=== PATIENT | female | born 1985 | race Caucasian/White ===

== ENCOUNTER 2018-07-07 19:19 | Inpatient (IN) | payer MEDICAID, OTHER ==
[2018-07-07] MEDS ORDERED: RINGER'S SOLUTION,LACTATED 1,000 ML IV PRN (19:31)
[2018-07-07 19:52] LABS: Urine Bilirubin Negative (NEGATIVE); Urine Blood Negative /ul (NEGATIVE); Urine Ketone Negative (NEGATIVE); Urine Nitrite Negative (NEGATIVE); Urine Protein Negative (NEGATIVE); Urine Specific Gravity 1.015 SP.GR. (1.005-1.010); Urine Urobilinogen Normal (NORMAL); Urine pH 6.5 pH (5.0-7.0)
[2018-07-07 19:59] LABS: Urine Appearance Clear (CLEAR); Urine Color Yellow
[2018-07-07 20:00] LABS: Urine Bacteria TRACE; Urine RBC None Seen /hpf (0-5); Urine WBC None Seen /hpf (0-5)
[2018-07-07 20:05] LABS: Cocaine Ur Negative (NEGATIVE); Urine Barbiturate Negative (NEGATIVE); Urine Benzodiazepines Negative (NEGATIVE); Urine Opiates Negative (NEGATIVE); Urine PCP Negative (NEGATIVE); Urine THC Negative (NEGATIVE)
[2018-07-07] MEDS ORDERED: RINGER'S SOLUTION,LACTATED 1,000 ML IV ONE ×2 (20:54→23:48)
--- NOTE | 2018-07-07 22:05 | HP ---
Chief Complaint - Chief Complaint Date of Service: 07/07/18 Time of Service: 21:59 Chief Complaint: Labor History of Present Illness: The patient presented to L&D complaining of regular ctx. She denied vb or lof. Fetus was active. No other complaints. Medical History (Last Reviewed 06/15/18 @ 11:26 by Hamilton Dangelo RN) Abnormal Pap smear of cervix Onset Date: ~01/07/18 Anxiety Onset Date: Unknown Depression (emotion) Onset Date: Unknown Drug abuse Onset Date: Unknown Tobacco abuse Onset Date: Unknown HPV (human papilloma virus) infection Onset Date: ~01/07/18 Surgical History: Surgical History (Last Reviewed 06/15/18 @ 11:26 by Hamilton Dangelo RN) H/O adenoidectomy Onset Date: ~1992 H/O thumb surgery Onset Date: ~2011 History of colposcopy Onset Date: ~02/03/18 History of tonsillectomy Onset Date: ~1992 Previous section Onset Date: ~2008 ankle surgery Onset Date: ~2004 Family History: Family History (Last Reviewed 06/15/18 @ 11:26 by Hamilton Dangelo RN) Father Alive and well Mother Alive and well Grandfather Heart disease Diabetes Cancer Social History: Preferred Language Tongan Abuse History No History of abuse Psych History No pertinent hx Review Of Systems (GEN) - Review of Systems EENTM: Present: No Symptoms Reported Respiratory: Present: No Symptoms Reported Cardiac: Present: No Symptoms Reported Abdominal: Present: No Symptoms Reported Genitourinary: Present: No Symptoms Reported Musculoskeletal: Present: No Symptoms Reported Neurological: Present: No Symptoms Reported Skin: Present: No Symptoms Reported Endocrine: Present: No Symptoms Reported Immunizations: IMMUNIZATION HX History of Influenza Vaccine Yes Hx Pneumococcal Vaccination No Allergies/Adverse Reactions: Allergies Allergy/AdvReac Type Severity Reaction Status Date / Time No Known Allergies Allergy Verified 07/07/18 19:36 Home Medications: HOME MEDICATIONS Vit 90/Iron Fum/Folic [ Formula Tablet] 1 ea PO DAILY 10/04/15 [Last Taken 01/08/16 2100] acetaminophen 500 mg tablet 1,000 mg PO Q6H PRN tab 05/13/18 [Last Taken Unknown] blood sugar diagnostic strips See Dose Instructions .ROUTE .MEDSUPPLY #100 ea [Last Taken Unknown] blood-glucose meter kit See Dose Instructions .ROUTE .MEDSUPPLY #1 ea 05/18/18 [ Last Taken Unknown] lancets 28 gauge See Dose Instructions .ROUTE .MEDSUPPLY #100 ea 05/18/18 [Last Taken Unknown] insulin NPH isophane U-100 human 100 unit/mL (3 mL) subcutaneous pen 16 unit SUB -Q HS ml 06/28/18 [Last Taken Unknown] Exam - Exam Constitutional: Present: Alert, Oriented x3, Cooperative, No distress Back Exam: Present: normal inspection, no CVA tenderness Breasts: Present: Exam deferred Respiratory: Present: chest non-tender, lungs clear, normal breath sounds, no respiratory distress Cardiovascular/Chest: Present: normal peripheral pulses, regular rate, rhythm, no murmur Abdomen: Present: Normal bowel sounds, soft, nontender, nondistended /Rectal: Present: Exam deferred Extremity: Present: non-tender, no calf tenderness, pedal edema Skin Exam: Present: normal color, warm/dry, no cyanosis Appearance: Present: appropriate appearance Eye contact: Present: cooperative Thoughts: Present: normal thought pattern Diagnostic Studies: Laboratory Results Urine Color Yellow 07/07/18 19:45 Urine Appearance Clear (CLEAR) 07/07/18 19:45 Urine pH 6.5 pH (5.0-7.0) 07/07/18 19:45 Ur Specific [place] 1.015 SP.GR. (1.005-1.010) 07/07/18 19:45 Urine Protein Negative mg/dL (NEGATIVE) 07/07/18 19:45 Urine Glucose (UA) Negative mg/dL (NEGATIVE) 07/07/18 19:45 Urine Ketones Negative mg/dL (NEGATIVE) 07/07/18 19:45 Urine Blood Negative /ul (NEGATIVE) 07/07/18 19:45 Urine Nitrate Negative (NEGATIVE) 07/07/18 19:45 Urine Bilirubin Negative mg/dl (NEGATIVE) 07/07/18 19:45 Urine Urobilinogen Normal EU/dl (NORMAL) 07/07/18 19:45 Ur Leukocyte Esterase Negative /ul (NEGATIVE) 07/07/18 19:45 Urine RBC None seen /hpf (0-5) 07/07/18 19:45 Urine WBC None seen /hpf (0-5) 07/07/18 19:45 Ur Epithelial Cells Trace /hpf (0-5) 07/07/18 19:45 Urine Bacteria Trace (NONE) 07/07/18 19:45 Urine Opiates Screen Negative (NEGATIVE) 07/07/18 19:48 Barbiturate Screen Negative (NEGATIVE) 07/07/18 19:48 Ur Phencyclidine Scrn Negative (NEGATIVE) 07/07/18 19:48 Urine Amphetamine Negative (NEGATIVE) 07/07/18 19:48 U Benzodiazepines Scrn Negative (NEGATIVE) 07/07/18 19:48 Urine Cocaine Screen Negative (NEGATIVE) 07/07/18 19:48 Urine Marijuana (THC) Negative (NEGATIVE) 07/07/18 19:48 Assessment/Plan - Narrative Narrative: Labor at term. Proceed with repeat delivery and bilateral salpingectomy. The patient is 100% sure she does not desire any future childbearing. A2GDM: FSBS was 69 on admission
[2018-07-07] MEDS ORDERED: OXYTOCIN 20 UNITS in RINGER'S SOLUTION,LACTATED 1,000 ML IV ONE ×2 (22:11→22:16)
[2018-07-07] MEDS ORDERED: SENNOSIDES 8.6 MG TABLET PO PRN (23:48)
[2018-07-07] MEDS ORDERED: ONDANSETRON HCL/PF 2 MG/ML VIAL IV PRN (23:48)
[2018-07-07] MEDS ORDERED: SIMETHICONE 80 MG TAB.CHEW PO PRN (23:48)
[2018-07-07] MEDS ORDERED: diphenhydrAMINE HCL 25 MG CAPSULE PO PRN (23:48)
[2018-07-07] MEDS ORDERED: BISACODYL 10 MG SUPP.RECT RC PRN (23:48)
--- NOTE | 2018-07-07 23:54 | POSTOP NO ---
Date of Surgery: 07/07/18 Anesthesia: Epidural Patient Tolerated the Procedure: Well Post Operative Diagnosis/Procedures: Pre Operative Diagnosis: labor, A2GDM, history of prior delivery, desires sterilization Post Operative Diagnosis: same Procedure Performed: repeat delivery, bilateral salpingectomy Estimated Blood Loss: 800 mL Specimens: placenta and bilateral tubes Surgical Complications: none Condition: stable Disposition: to recovery room
--- NOTE | 2018-07-08 00:26 | ANES ---
Post Anesthesia Discharge - Transfer of Care Transfer of Care handoff given to nurse: Yes - Discharge from PACU Discharge from PACU when meets criteria: Yes
--- NOTE | 2018-07-08 00:26 | ANES ---
Anesthesia Pre Procedure Eval Vitals/Labs: Last Vital Signs Temp 36.4 C 07/08/18 00:00 Pulse 96 07/08/18 00:20 Resp 24 H 07/08/18 00:20 BP 102/60 07/08/18 00:20 Pulse Ox 98 07/08/18 00:20 HOME MEDICATIONS Vit 90/Iron Fum/Folic [ Formula Tablet] 1 ea PO DAILY 10/04/15 [Last Taken 01/08/16 2100] acetaminophen 500 mg tablet 1,000 mg PO Q6H PRN tab 05/13/18 [Last Taken Unknown] blood sugar diagnostic strips See Dose Instructions .ROUTE .MEDSUPPLY #100 ea [Last Taken Unknown] blood-glucose meter kit See Dose Instructions .ROUTE .MEDSUPPLY #1 ea 05/18/18 [ Last Taken Unknown] lancets 28 gauge See Dose Instructions .ROUTE .MEDSUPPLY #100 ea 05/18/18 [Last Taken Unknown] insulin NPH isophane U-100 human 100 unit/mL (3 mL) subcutaneous pen 16 unit SUB -Q HS ml 06/28/18 [Last Taken Unknown] Allergies/Adverse Reactions: Allergies Allergy/AdvReac Type Severity Reaction Status Date / Time No Known Allergies Allergy Verified 07/07/18 19:36 - Planned Procedure Planned Procedure: RULE OUT LABOR Medication List Reviewed:: Yes Allergies Verified: Yes Medical History (Last Reviewed 07/08/18 @ 00:25 by Candido Castellanos CRNA) Abnormal Pap smear of cervix Onset Date: ~01/07/18 Anxiety Onset Date: Unknown Depression (emotion) Onset Date: Unknown Drug abuse Onset Date: Unknown Tobacco abuse Onset Date: Unknown HPV (human papilloma virus) infection Onset Date: ~01/07/18 Surgical History (Last Reviewed 07/08/18 @ 00:25 by Candido Castellanos CRNA) H/O adenoidectomy Onset Date: ~1992 H/O thumb surgery Onset Date: ~2011 History of colposcopy Onset Date: ~02/03/18 History of tonsillectomy Onset Date: ~1992 Previous section Onset Date: ~2008 ankle surgery Onset Date: ~2004 Family History (Last Reviewed 07/08/18 @ 00:25 by Candido Castellanos CRNA) Father Alive and well Mother Alive and well Grandfather Heart disease Diabetes Cancer - Family Anesthesia History Family History:: no untoward family reactions to anesthesia - Airway/Neck/Teeth Within Normal Limits:: Yes Neck Exam: full range of motion, normal alignment Mallampatti Score: 2 Thyromental (T-M) distance: > 6 cm Mandibulo Hyoid distance: > 3 cm - Respiratory Respiratory: lungs clear, normal breath sounds Smoking Status: Never smoker Sleep Apnea currently treated: No Sleep Apnea by current assessment: No - Cardiovascular Patient History - Cardiac/Respiratory: No pertinent hx Tolerates Activity: Good Heart Sounds: S1 & S2, Regular - Anesthesia Assessment and Plan ASA Class: PS, II, E Anesthesia Type Plan: Spinal - bkilat tap block for postop analgesia
--- NOTE | 2018-07-08 00:30 | ANES ---
Anesthesia Procedure Note Procedure Note: ANESTHESIA PROCEDURE NOTE Date of procedure: 07/08/2018. Time of procedure:[]. 0005 Performed by: Sterling Castellanos CRNA Safety Consultant: [] Jie Ramirez RN . Preprocedure diagnosis: []. Postoperative analgesia. Status post section Post procedure diagnosis: Same. Procedure:[] Ultrasound-guided bilateral tap block Indications: []. Postoperative analgesia Findings: [] Patient placed in a supine position and PACU. Patient's right lateral abdominal wall was prepped with ChloraPrep. Ultrasound was utilized to identify the fascial layer between the internal oblique and trans-abdominus muscles. A 20-gauge 4 inch Stimuplex regional block needle was advanced under ultrasound guidance until tip of needle was inserted just distal to fascial layer. A total of 20 mL of 0.25% Marcaine with epinephrine 1 200,000 was injected with adequate spread of local anesthesia noted. Procedure was then repeated on patient's left side. EBL: Minimal. Fluids: N/A. Specimen: N/A. Post procedure condition: The patient tolerated the procedure well. No complications were noted. Thank you for this consultation Sterling Castellanos CRNA
--- NOTE | 2018-07-08 00:31 | ANES ---
Post Anesthesia Assessment - Vital Signs Vitals: Last Vital Signs Temp 36.4 C 07/08/18 00:00 Pulse 98 07/08/18 00:25 Resp 25 H 07/08/18 00:25 BP 128/50 07/08/18 00:25 Pulse Ox 98 07/08/18 00:25 Airway Patency: Normal - Mental Status Level Of Consciousness: Awake - Pain Level Pain Score: 2 - N/V Assessment Nausea/Vomiting Presence: None Dehydration:: No
[2018-07-08] MEDS: IBUPROFEN 800 MG TABLET PO PRN ×2 (02:11→22:00)
[2018-07-08] MEDS: oxyCODONE HCL/ACETAMINOPHEN 1 TAB TABLET PO PRN ×6 (02:11→22:00)
[2018-07-08] MEDS ORDERED: ceFAZolin SODIUM/DEXTROSE,ISO 2 GM/50 ML BAG IV PRN (06:00)
[2018-07-08] MEDS ORDERED: RINGER'S SOLUTION,LACTATED 1,000 ML IV PRN (06:00)
[2018-07-08] MEDS: KETOROLAC TROMETHAMINE 30 MG/ML VIAL IV SCH ×3 (08:09→15:08)
[2018-07-08] MEDS: DOCUSATE SODIUM 100 MG CAPSULE PO SCH ×2 (08:12→22:00)
--- NOTE | 2018-07-08 08:39 | PN ---
Subjective - Date and Time Seen Date: 07/08/18 Time: 08:36 Subjective Narrative: Patient without complaints Objective Objective Narrative: See vital signs - Review of Systems Generalized/Overall Review: Reports: No Symptoms Reported EENTM: Reports: No Symptoms Reported Respiratory: Reports: No Symptoms Reported Cardiac: Reports: No Symptoms Reported Abdominal: Reports: No Symptoms Reported Genitourinary Symptoms: Reports: No Symptoms Reported Musculoskeletal Complaints: Reports: No Symptoms Reported Neurological: Reports: No Symptoms Reported Skin: Reports: No Symptoms Reported Endocrine: Reports: No Symptoms Reported - Vitals Vitals: Last Vital Signs Temp 36.6 C 07/08/18 05:25 Pulse 96 07/08/18 05:25 Resp 18 07/08/18 05:25 BP 113/63 07/08/18 05:25 Pulse Ox 97 07/08/18 05:25 - Exam Constitutional: Present: Alert, Oriented x3, Cooperative, No distress Breasts: Present: Exam deferred Cardiovascular/Chest: Present: normal peripheral pulses Abdomen: Present: Normal bowel sounds, soft, nontender /Rectal: Present: Exam deferred Extremity: Present: non-tender, no calf tenderness, pedal edema Skin Exam: Present: normal color, warm/dry, no cyanosis Appearance: Present: appropriate appearance Eye contact: Present: cooperative Thoughts: Present: normal thought pattern Cauti Physician Documentation - Urinary Catheter Management Urethral (Pugh) Urethral Indwelling: Yes Date of Insertion: 07/07/18 Time of Insertion: 23:05 Assessment/Plan Plan Narrative: POD 1 s/p delivery and tubal ligation Doing well Dressing c/d/i Discharge POD 3
--- NOTE | 2018-07-08 09:13 | OR ---
Operative Report - Dictated Report Narrative: Date of surgery: 07/07/18 Time of surgery: 2310 Preop diagnosis: Labor, A2GDM, AMA, desires sterilization Postop diagnosis: same Procedure: repeat delivery, bilateral salpingectomy Sex: viable female infant Birthweight: 3408 grams APGARS: 8/9 Surgeon: Dr. Saenz Anesthesia: spinal Anesthesiologist: Sterling Castellanos CRNA Indications for the procedure: The patient is a 33 yo who presented to labor and delivery complaining of regular contractions. She had cervical change and thus a decision was made to proceed with repeat delivery. All risks , benefits, and alternatives of the procedure were explained to the patient and the patient consented to the procedure. Description of the procedure: The patient was taken to the operating room where spinal anesthesia was established. She was then prepped and draped supine in the standard surgical fashion. A Pfannestiel skin incision was made. The incision was carried down through the subcutaneous tissue. The fascia was incised in the midline. The fascial incision was extended sharply. The fascia was grasped with Kochers and dissected from the underlying rectus muscle. The rectus muscles were in the midline. The peritoneum was entered bluntly. An X-large Reid retractor was placed. The lower uterine segment was incised in a low transverse fashion. The uterine incision was extended bluntly. The membranes were ruptured. The head was delivered. The fetus had a loose nuchal cord and a body cord x2 all of which were reduced atramatically. The rest of the infant was delivered atraumatically and handed off to the pediatric staff. The uterine incision was closed with a single layer of 0-vicryl. The uterine incision appeared hemostatic. The left fallopian tube was identified by following it to the fimbriated end. The tube was resected by cutting along the Mesosalpinx using a small handheld Ligasure. The same procedure was repeated on the right tube. Hemostasis of the mesosalpinx and the uterine incision was ensured. The fascia was closed with 1-0 vicryl. The skin incision was closed with 3-0 monocryl on a Sebas needle. Dermabond was placed over the uterine incision. The patient tolerated the procedure well. She was transferred to the recovery room in stable condition. EBL: 800 mL Complications: none
[2018-07-09] MEDS: oxyCODONE HCL/ACETAMINOPHEN 1 TAB TABLET PO PRN ×5 (03:06→19:48)
[2018-07-09] MEDS: KETOROLAC TROMETHAMINE 30 MG/ML VIAL IV SCH (07:30)
[2018-07-09] MEDS: IBUPROFEN 800 MG TABLET PO PRN ×3 (07:30→20:30)
--- NOTE | 2018-07-09 13:04 | PN ---
Subjective - Date and Time Seen Date: 07/09/18 Time: 13:02 Subjective Narrative: Pt without complaints Objective Objective Narrative: See vital signs and flow sheet - Review of Systems Generalized/Overall Review: Reports: No Symptoms Reported EENTM: Reports: No Symptoms Reported Respiratory: Reports: No Symptoms Reported Cardiac: Reports: No Symptoms Reported Abdominal: Reports: No Symptoms Reported Genitourinary Symptoms: Reports: No Symptoms Reported Musculoskeletal Complaints: Reports: No Symptoms Reported Neurological: Reports: No Symptoms Reported Skin: Reports: No Symptoms Reported Endocrine: Reports: No Symptoms Reported - Vitals Vitals: Last Vital Signs Temp 36.9 C 07/09/18 07:42 Pulse 100 07/09/18 07:42 Resp 18 07/09/18 07:42 BP 131/89 07/09/18 07:42 Pulse Ox 97 07/09/18 07:42 - Exam Constitutional: Present: Alert, Oriented x3, Cooperative, No distress Breasts: Present: Exam deferred Respiratory: Present: lungs clear, normal breath sounds Abdomen: Present: soft, nontender, nondistended - incision well-healed /Rectal: Present: Exam deferred Extremity: Present: non-tender, no calf tenderness Skin Exam: Present: normal color, warm/dry, no cyanosis Appearance: Present: appropriate appearance Eye contact: Present: cooperative Thoughts: Present: normal thought pattern Cauti Physician Documentation - Urinary Catheter Management Urethral (Pugh) Urethral Indwelling: No Date of Insertion: 07/07/18 Time of Insertion: 23:05 Assessment/Plan Plan Narrative: POD 2 s/p delivery and salpingectomies Doing well Discharge tomorrow
[2018-07-09] MEDS: DOCUSATE SODIUM 100 MG CAPSULE PO SCH ×2 (17:18→20:30)
[2018-07-10] MEDS: oxyCODONE HCL/ACETAMINOPHEN 1 TAB TABLET PO PRN ×3 (03:09→11:32)
[2018-07-10] MEDS: IBUPROFEN 800 MG TABLET PO PRN ×2 (03:09→10:01)
--- NOTE | 2018-07-10 08:01 | PN ---
Subjective - Date and Time Seen Date: 07/10/18 Time: 07:59 Subjective Narrative: Pt reports increased bleeding today but still consistent with normal PP bleeding. No other concerns. Objective Objective Narrative: See vital signs and I&O - Review of Systems Generalized/Overall Review: Reports: No Symptoms Reported EENTM: Reports: No Symptoms Reported Respiratory: Reports: No Symptoms Reported Cardiac: Reports: No Symptoms Reported Abdominal: Reports: No Symptoms Reported Genitourinary Symptoms: Reports: No Symptoms Reported Musculoskeletal Complaints: Reports: No Symptoms Reported Neurological: Reports: No Symptoms Reported Skin: Reports: No Symptoms Reported Endocrine: Reports: No Symptoms Reported - Vitals Vitals: Last Vital Signs Temp 36.6 C 07/10/18 00:57 Pulse 86 07/10/18 00:57 Resp 16 07/10/18 00:57 BP 135/79 07/10/18 00:57 Pulse Ox 96 07/10/18 00:57 - Exam Constitutional: Present: Alert, Oriented x3, Cooperative, No distress Abdomen: Present: soft, nontender - fundus is firm Extremity: Present: non-tender, no calf tenderness, pedal edema Skin Exam: Present: normal color, warm/dry, no cyanosis Appearance: Present: appropriate appearance Eye contact: Present: cooperative Thoughts: Present: normal thought pattern Cauti Physician Documentation - Urinary Catheter Management Urethral (Pugh) Urethral Indwelling: No Date of Insertion: 07/07/18 Time of Insertion: 23:05 Assessment/Plan Plan Narrative: POD 3 s/p delivery Doing well Discharge home Follow-up in 6 weeks
[2018-07-10 09:11] VITALS: BP 138/85
[2018-07-10] MEDS: DOCUSATE SODIUM 100 MG CAPSULE PO SCH (10:01)
== END 2018-07-10 11:30 | disposition home or self-care (01) | DRG 766 ==
LOC: OBCLINIC 19:19 → OB 21:47
PROVIDERS: ADMIT Obstetrics & Gynecology; ATTEND Obstetrics & Gynecology
CPT/HCPCS: 59025; 80307; 81001; 88302; 88307; G0479